=== PATIENT | female | born 1990 | race Caucasian/White ===

== ENCOUNTER 2020-02-28 11:31 | Emergency (ER) | payer OTHER ==
[~2020-02-28] VITALS: Ht 172.7 cm; Wt 63.6 kg
[2020-02-28 11:47] VITALS: BP 104/65
== END 2020-02-28 12:44 | disposition home or self-care (01) ==
LOC: ER 11:31
DX: S61.431A Puncture wound without foreign body of right hand, initial encounter (principal); W46.0XXA Contact with hypodermic needle, initial encounter; Y93.89 Activity, other specified; Y92.89 Other specified places as the place of occurrence of the external cause; Y99.8 Other external cause status
CPT/HCPCS: 99281